=== PATIENT | female | born 1955 | race Caucasian/White ===

== ENCOUNTER 2016-02-17 08:50 | Outpatient (CLI) | payer OTHER | END 2016-02-17 08:51 | disposition home or self-care (01) | DX: Z00.00 Encounter for general adult medical examination without abnormal findings (principal) ==

== ENCOUNTER 2021-03-30 08:00 | Outpatient (CLI) | payer MEDICARE, OTHER ==
--- NOTE | 2021-03-30 16:15 | XRAY Report ---
PROCEDURE: Hand 3 View RT INDICATIONS: RIGHT HAND PAIN TECHNIQUE: 3 views of the hand(s) acquired. COMPARISON: None FINDINGS: Bones: No fractures or dislocations. No suspicious bony lesions. Moderate first CMC joint arthritis . [id number] triscaphe joint osteoarthritis. Mild second through fifth DIP joint osteoarthritis . Mild fifth PIP joint osteoarthritis. Soft tissues: No suspicious soft tissue calcifications. IMPRESSION: 1. Osteoarthritis as described above. 2. No fracture. No acute osseous lesion. If there persistent symptoms or continued clinical concern f or pathology, then repeat plain film radiographs (7-10 days) or advanced imaging (CT, MR, bone scan) should be considered for further evaluation. Reviewed by: Dahiana Ordonez MD, PhD on 03/30/2021 4:13 PM PST Approved by: Dahiana Ordonez MD, PhD on 03/30/2021 4:13 PM PST Station ID: [id number]
== END 2021-03-30 23:59 | disposition home or self-care (01) ==
LOC: DI.S 08:00
PROVIDERS: ATTEND Registered Nurse
DX: M19.041 Primary osteoarthritis, right hand (principal)